=== PATIENT | male | born 1940 | race Caucasian/White ===

== ENCOUNTER → 2017-10-01 | Outpatient (CLI) | payer MEDICARE, BC ==
[~2017-10-01] MED LIST: LIDOCAINE-MPF 1%, 2ML ONE
== END ==
LOC: RAD 08:03
PROVIDERS: ATTEND Internal Medicine Hematology & Oncology
DX: Z45.2 Encounter for adjustment and management of vascular access device (principal); C61 Malignant neoplasm of prostate
CPT/HCPCS: 36569; 76937; 77001; C1751; J3490

== ENCOUNTER → 2019-07-20 | Outpatient (CLI) | payer MEDICARE, BC | END | disposition home or self-care (01) | LOC: RAD 15:11 | PROVIDERS: ATTEND Internal Medicine Hematology & Oncology | DX: C61 Malignant neoplasm of prostate (principal) | CPT/HCPCS: 36573; C1751 ==

== ENCOUNTER → 2019-11-10 | Outpatient (CLI) | payer MEDICARE, BC | END | disposition home or self-care (01) | LOC: RAD 13:26 | PROVIDERS: ATTEND Internal Medicine Hematology & Oncology | DX: C61 Malignant neoplasm of prostate (principal) | CPT/HCPCS: 36573; C1751 ==